=== PATIENT | male | born 1955 | race American Indian/Alaskan Native ===

== ENCOUNTER 2019-06-26 12:39 | Emergency (ER) | payer SELFPAY ==
--- NOTE | 2019-06-26 13:43 | Event Note ---
ED Screening Note ED Screening Note: This initial assessment/diagnostic orders/clinical plan/treatment(s) is/are subject to change based on patients health status, clinical progression and re- assessment by fellow clinical providers in the ED. Further treatment and workup at subsequent clinical providers discretion. Patient/guardian urged not to elope from the ED as their condition may be serious if not clinically assessed and managed. Initial orders include: 63 yo male presents with R leg tingling x 1 day. He states that has HTN that he is not taking medication for in addition to being told that he has elevated blood sugar that needs to be lowered.
[2019-06-26 15:04] VITALS: BP 149/93
--- NOTE | 2019-06-26 15:08 | Emergency Department Report ---
ED Extremity Problem HPI - General Chief complaint: Neuro Symptoms/Deficit Stated complaint: CHEST/FEET/NUMBNESS Time Seen by Provider: 06/26/19 14:24 Source: patient Mode of arrival: Ambulatory Limitations: No Limitations - History of Present Illness Initial comments: 63 yr old male with past medical history of hypertension not currently on meds presents to the hospital with complaints of right leg numbness [address] since returning from [facility]. Patient complains of a constant numbness to his upper lead since laterally down to his foot. It is exacerbated by prolonged sitting. Patient denies significant pain, weakness, or urinary incontinence. Patient states he also has a history of a large prostate. He denies back pain or trauma. Does not have a primary care doctor. Severity scale (0 -10): 0 - Related Data Previous Rx's Medication Instructions Recorded Last Taken Type Gabapentin [Neurontin] 300 mg PO Q8HR #60 capsule 06/26/19 Unknown Rx Ibuprofen [Motrin] 800 mg PO Q8HR PRN #20 tablet 06/26/19 Unknown Rx amLODIPine [Norvasc] 5 mg PO DAILY #30 tab 06/26/19 Unknown Rx Allergies Allergy/AdvReac Type Severity Reaction Status Date / Time No Known Allergies Allergy Verified 06/26/19 13:36 ED Review of Systems ROS: Stated complaint: CHEST/FEET/NUMBNESS Other details as noted in HPI Comment: All other systems reviewed and negative ED Past Medical Hx - Past Medical History Previous Medical History?: Yes Hx Hypertension: Yes (non-compliant) - Surgical History Past Surgical History?: No - Social History Smoking Status: Never Smoker Substance Use Type: Alcohol - Medications Home Medications: Home Medications Medication Instructions Recorded Confirmed Last Taken Type Gabapentin [Neurontin] 300 mg PO Q8HR #60 capsule 06/26/19 Unknown Rx Ibuprofen [Motrin] 800 mg PO Q8HR PRN #20 tablet 06/26/19 Unknown Rx amLODIPine [Norvasc] 5 mg PO DAILY #30 tab 06/26/19 Unknown Rx ED Physical Exam - General Limitations: No Limitations - Other Other exam information: Gen.: No acute distress Head: Atraumatic Eyes: Normal appearance, extraocular movements intact ENT: Moist mucous membranes Neck: Normal appearance, no posterior midline tenderness, no meningismus Chest: Clear to auscultation bilaterally Cardiovascular: Regular rate and rhythm Abdomen: Normal appearance, soft, nontender, no rebound or guarding, normal bowel sounds Back: Normal appearance, nontender Extremity: Full range of motion, normal appearance, 2+ DP pulses equal bilateral Neuro: Alert oriented 2, clear speech, diminished sensation to light touch to the lateral right thigh. Sensation is otherwise intact. 2+ bilateral patellar reflexes equal bilaterally. 5/5 upper and lower extremity strength Psychiatric: Appropriate Skin: No rash ED Course Vital Signs 06/26/19 06/26/19 06/26/19 12:48 12:51 15:03 Temperature 98.2 F 98.2 F Pulse Rate 119 H 119 H 78 Respiratory 18 18 15 Rate Blood Pressure 159/115 Blood Pressure 159/115 149/93 [Right] O2 Sat by Pulse 100 100 99 Oximetry 06/26/19 15:06 Temperature 98.2 F Pulse Rate Respiratory Rate Blood Pressure Blood Pressure [Right] O2 Sat by Pulse Oximetry ED Medical Decision Making - Medical Decision Making Patient has numbness at the area of distribution of the sciatic nerve symptoms ongoing 5 months exacerbated with sitting. Patient declined having significant pain in the ED and declined offer for pain medication. He'll be started on anti-inflammatories, Neurontin, and medication for his blood pressure. Outpatient follow-up with PMD for further workup and evaluation will be encouraged. - Differential Diagnosis sciatica, herniated disc, radiculopathy, CVA Critical Care Time: No Critical care attestation.: If time is entered above; I have spent that time in minutes in the direct care of this critically ill patient, excluding procedure time. ED Disposition Clinical Impression: HTN (hypertension) Sciatica Qualifiers: Laterality: right Qualified Code(s): M54.31 - Sciatica, right side Disposition: TO HOME OR SELFCARE Is pt being admited?: No Does the pt Need Aspirin: No Condition: Stable Instructions: Sciatica (ED), Hypertension (ED) Additional Instructions: Take the medication as prescribed. Follow-up with your doctor or with the doctor/clinic provided. Return if symptoms worsen as indicated by your discharge instructions. Prescriptions: Ibuprofen [Motrin] 800 mg PO Q8HR PRN #20 tablet PRN Reason: Pain , Severe (7-10) Gabapentin [Neurontin] 300 mg PO Q8HR #60 capsule amLODIPine [Norvasc] 5 mg PO DAILY #30 tab Referrals: [facility] [Provider Group] - 3-5 Days MIRANDA LEE DO [Staff Physician] - 3-5 Days Time of Disposition: 15:30
[2019-06-26 16:16] LABS: Bilirubin,Urine NEG (Negative); Blood,Urine SM (Negative); Color,Urine Yellow (Yellow); Protein,Urine <15 mg/dL mg/dL (Negative); Urobilinogen,Urine < 2.0 mg/dL (<2.0); WBC,Urine < 1.0 /HPF (0.0-6.0)
== END 2019-06-26 16:34 | disposition home or self-care (01) ==
LOC: ED 12:39
DX: M54.31 Sciatica, right side (principal); I10 Essential (primary) hypertension
CPT/HCPCS: 81001; 82962